=== PATIENT | male | born 1975 | race Caucasian/White ===

== ENCOUNTER → 2020-08-13 | Outpatient (CLI) | payer OTHER | LOC: M LABSMTC 09:52 | PROVIDERS: ATTEND Anesthesiology | DX: Z01.812 Encounter for preprocedural laboratory examination (principal); Z20.822 Contact with and (suspected) exposure to COVID-19 ==

== ENCOUNTER → 2020-08-18 | Day surgery (SDC) | payer OTHER ==
[~2020-08-18] VITALS: Ht 167.6 cm; Wt 63.0 kg
[~2020-08-18] MED LIST: AMPICILLIN SOD/SULBACTAM SOD 3 GM in D5W MINI-BAG PLUS 100 ML IV ONE; LIDOCAINE 1% MDV 20ML VIAL SQ PRN; LIDOCAINE 2% W/ EPINEPHRINE 1.7 ML DENTAL INJ As Ordered ONE; LR 1,000 ML IV ONE; ONDANSETRON 4MG/2ML VIAL As Ordered ONE; dexameTHASONE 4 MG/ML 1ML VIAL (J1100 PER 1MG) IV ONE
[2020-08-18 09:04] VITALS: BP 117/76
== END | disposition home or self-care (01) ==
LOC: M SDC 06:06
PROVIDERS: ATTEND Dentist
DX: K02.9 Dental caries, unspecified (principal); Z53.09 Procedure and treatment not carried out because of other contraindication; R55 Syncope and collapse; R11.0 Nausea